=== PATIENT | male | born 1985 | race Two or more races ===

== ENCOUNTER 2017-11-25 21:20 | Emergency (ER) | payer MEDICAID, MEDICARE ==
[~2017-11-25] VITALS: Ht 180.3 cm; Wt 65.9 kg
[~2017-11-25 21:20] MED LIST: ALPR1TAB10 PO; CLON2TAB16 PO; TIZA4CAP PO; TRAZ150T62 PO; VORT10TA PO
[2017-11-25] MEDS ORDERED: LORazepam 1MG TABLET ONE (22:15)
[2017-11-25] MEDS ORDERED: LORazepam 1MG TABLET PO ONE (22:30)
[2017-11-25 22:42] LABS: BASOPHILS # (AUTO) 0.04 x10^3/uL (0-0.1); BASOPHILS % (AUTO) 1 % (0-1); EOSINOPHILS # (AUTO) 0.17 x10^3/uL (0-0.4); EOSINOPHILS % (AUTO) 3 % (1-7); LYMPHOCYTES % (AUTO) 39 % (22-44); MD NO; MEAN CORPUSCULAR HGB CONC 34.4 g/dL (33.2-36.2); MEAN CORPUSCULAR VOLUME 96.2 fL (81-97); MEAN PLATELET VOLUME 7.6 fL (7.4-10.4); MONOCYTES # (AUTO) 0.43 x10^3/uL (0.2-0.8); MONOCYTES % (AUTO) 7 % (2-9); NEUTROPHILS # (AUTO) 2.94 x10^3/uL (1.8-6.8); NEUTROPHILS % (AUTO) 50 % (42-75); PLATELET COUNT 154 x10^3/uL (130-400)
[2017-11-25 22:53] LABS: ALBUMIN 3.1 g/dL (3.4-5.0); ANION GAP 7 mmol/L (5-15); CALCIUM 7.7 mg/dL (8.5-10.1); CHLORIDE 112 mmol/L (98-107); CREATININE 0.81 mg/dL (0.7-1.3)
[2017-11-25 23:01] VITALS: BP 105/73
== END 2017-11-25 23:44 | disposition home or self-care (01) ==
LOC: ED 23:38
DX: R56.9 Unspecified convulsions (principal); Z90.49 Acquired absence of other specified parts of digestive tract
CPT/HCPCS: 36415; 80048; 80307; 82040; 85025; 99284; G0479

== ENCOUNTER 2018-04-07 22:21 | Inpatient (IN) | payer MEDICARE, MEDICAID ==
[~2018-04-07] VITALS: Ht 180.3 cm; Wt 58.4 kg
[2018-04-07] MEDS ORDERED: ONDANSETRON ODT 4 MG ONE (22:40)
[2018-04-07] MEDS ORDERED: MAALOX/HYOSCYAMINE/LIDOCAINE 45 ML BTL ONE (22:40)
[2018-04-07] MEDS ORDERED: MAALOX/HYOSCYAMINE/LIDOCAINE 45 ML BTL PO ONE (23:00)
[2018-04-07] MEDS ORDERED: ONDANSETRON ODT 4 MG PO ONE (23:00)
[2018-04-07 23:15] LABS: BASOPHILS # (AUTO) 0.05 x10^3/uL (0-0.1); BASOPHILS % (AUTO) 1 % (0-1); EOSINOPHILS # (AUTO) 0.03 x10^3/uL (0-0.4); EOSINOPHILS % (AUTO) 1 % (1-7); LYMPHOCYTES # (AUTO) 1.65 x10^3/uL (1-3.4); LYMPHOCYTES % (AUTO) 35 % (22-44); MD NO; MEAN CORPUSCULAR HEMOGLOBIN 32.2 pg (27.5-34.5); MEAN CORPUSCULAR HGB CONC 32.8 g/dL (33.2-36.2); MEAN CORPUSCULAR VOLUME 98.2 fL (81-97); MEAN PLATELET VOLUME 7.8 fL (7.4-10.4); MONOCYTES # (AUTO) 0.37 x10^3/uL (0.2-0.8); MONOCYTES % (AUTO) 8 % (2-9); NEUTROPHILS # (AUTO) 2.66 x10^3/uL (1.8-6.8); NEUTROPHILS % (AUTO) 56 % (42-75); PLATELET COUNT 170 x10^3/uL (130-400); RED BLOOD COUNT 3.94 x10^6/uL (4.38-5.82); RED CELL DISTRIBUTION WIDTH 20.4 % (9.4-14.8)
[2018-04-07 23:17] LABS: ALANINE AMINOTRANSFERASE 81 U/L (12-78); ALBUMIN 2.6 g/dL (3.4-5.0); ANION GAP 17 mmol/L (5-15); CALCIUM 7.9 mg/dL (8.5-10.1); CHLORIDE 109 mmol/L (98-107); CREATININE 1.08 mg/dL (0.7-1.3)
[2018-04-07 23:19] LABS: ALKALINE PHOSPHATASE 79 U/L (45-117); BILIRUBIN,TOTAL 1.2 mg/dL (0.2-1.0); TOTAL PROTEIN 5.2 g/dL (6.4-8.2)
[2018-04-08] MEDS ORDERED: PROCHLORPERAZINE 5 MG/ML, 2ML IVPush ONE
[2018-04-08] MEDS ORDERED: MORPHINE SULFATE 4 MG/ML, 1ML ONE (00:21)
[2018-04-08] MEDS ORDERED: PROCHLORPERAZINE 5 MG/ML, 2ML ONE (00:21)
[2018-04-08] MEDS ORDERED: SODIUM CHLORIDE 0.9% 1,000 ML IV ONE (01:54)
[2018-04-08] MEDS ORDERED: SODIUM CHLORIDE 0.9% 1,000ML IVBOLUS ONE ×2 (02:00)
[2018-04-08] MEDS ORDERED: MORPHINE SULFATE 4 MG/ML, 1ML IVPush PRN ×2 (02:00)
[2018-04-08 02:38] VITALS: BP 94/60
[2018-04-08] MEDS: MORPHINE SULFATE 4 MG/ML, 1ML IVPush PRN ×4 (05:18→20:44)
[2018-04-08] MEDS ORDERED: OMNIPAQUE 350 MG/ML, 100ML BOTTLE ONE (05:31)
[2018-04-08] MEDS ORDERED: morphine SULFATE 10 MG/ML, 1ML IVPush PRN (06:00)
[2018-04-08] MEDS ORDERED: ACETAMINOPHEN 500 MG TABLET PO PRN (06:00)
[2018-04-08] MEDS: POTASSIUM CHLORIDE 20 MEQ in LACTATED RINGERS 1,000 ML IV SCH ×3 (06:07→20:01)
[2018-04-08 07:09] VITALS: BP 107/70
[2018-04-08 07:12] LABS: % IRON SATURATION 85 % (20-55); IRON LEVEL 137 mcg/dL (65-175); TOTAL IRON BINDING CAPACITY 162 mcg/dL (250-450)
[2018-04-08] MEDS: ENOXAPARIN 40 MG/0.4 ML SQ SCH (07:34)
[2018-04-08] MEDS: VORTIOXETINE HYDROBROMIDE HOMEMEDPO SCH (07:34)
[2018-04-08] MEDS ORDERED: ALPR0.5T PO (08:34)
[2018-04-08] MEDS ORDERED: OMEP20CA14 PO (08:34)
[2018-04-08] MEDS ORDERED: HYDR100C2 PO (08:34)
[2018-04-08] MEDS ORDERED: TOPI100T39 PO (08:34)
[2018-04-08] MEDS ORDERED: TOPI25TA52 PO (08:34)
[2018-04-08] MEDS ORDERED: LEVE500V12 PO (08:34)
[2018-04-08] MEDS ORDERED: ZOLP10TA5 PO (08:34)
[2018-04-08] MEDS: POTASSIUM CHLORIDE 20 MEQ, MAGNESIUM SULFATE 1 GM, FOLIC ACID 1 MG, THIAMINE 100 MG, MV... IV SCH (11:28)
[2018-04-08 12:50] VITALS: BP 118/78
[2018-04-08 19:31] VITALS: BP_SYST 114; BP_SYST 123; BP_DIAS 73; BP_DIAS 84
[2018-04-08] MEDS: ONDANSETRON ODT 4 MG PO PRN (20:01)
[2018-04-08] MEDS: TRAZODONE 150MG TABLET PO SCH (20:43)
[2018-04-09] MEDS: ONDANSETRON ODT 4 MG PO PRN ×2 (00:26→21:03)
[2018-04-09] MEDS: MORPHINE SULFATE 4 MG/ML, 1ML IVPush PRN ×7 (00:26→22:50)
[2018-04-09 01:23] VITALS: BP 107/69
[2018-04-09] MEDS: POTASSIUM CHLORIDE 20 MEQ in LACTATED RINGERS 1,000 ML IV SCH ×2 (03:36→21:03)
[2018-04-09 05:49] LABS: BASOPHILS # (AUTO) 0.01 x10^3/uL (0-0.1); BASOPHILS % (AUTO) 0 % (0-1); EOSINOPHILS # (AUTO) 0.05 x10^3/uL (0-0.4); EOSINOPHILS % (AUTO) 2 % (1-7); LYMPHOCYTES # (AUTO) 1.01 x10^3/uL (1-3.4); LYMPHOCYTES % (AUTO) 29 % (22-44); MD NO; MEAN CORPUSCULAR HEMOGLOBIN 33.8 pg (27.5-34.5); MEAN CORPUSCULAR HGB CONC 34.3 g/dL (33.2-36.2); MEAN CORPUSCULAR VOLUME 98.5 fL (81-97); MEAN PLATELET VOLUME 8.1 fL (7.4-10.4); MONOCYTES % (AUTO) 9 % (2-9); NEUTROPHILS # (AUTO) 2.06 x10^3/uL (1.8-6.8); NEUTROPHILS % (AUTO) 60 % (42-75); PLATELET COUNT 103 x10^3/uL (130-400); RED BLOOD COUNT 3.62 x10^6/uL (4.38-5.82); RED CELL DISTRIBUTION WIDTH 19.2 % (9.4-14.8)
[2018-04-09 05:52] LABS: CHLORIDE 111 mmol/L (98-107)
[2018-04-09 05:59] LABS: ALANINE AMINOTRANSFERASE 96 U/L (12-78); ALBUMIN 2.2 g/dL (3.4-5.0); ALKALINE PHOSPHATASE 94 U/L (45-117); ANION GAP 6 mmol/L (5-15); BILIRUBIN,TOTAL 1.8 mg/dL (0.2-1.0); CALCIUM 7.1 mg/dL (8.5-10.1); CREATININE 0.62 mg/dL (0.7-1.3); TOTAL PROTEIN 4.8 g/dL (6.4-8.2)
[2018-04-09 07:23] VITALS: BP 94/66
[2018-04-09] MEDS: VORTIOXETINE HYDROBROMIDE HOMEMEDPO SCH (08:26)
[2018-04-09] MEDS: ENOXAPARIN 40 MG/0.4 ML SQ SCH (08:26)
[2018-04-09] MEDS: POTASSIUM CHLORIDE 20 MEQ, MAGNESIUM SULFATE 1 GM, FOLIC ACID 1 MG, THIAMINE 100 MG, MV... IV SCH (08:38)
[2018-04-09] MEDS ORDERED: SODIUM PHOSPHATE 20 MMOL in SODIUM CHLORIDE 0.9% 500 ML IV ONE (13:30)
[2018-04-09 14:00] VITALS: BP 99/68
[2018-04-09 17:13] VITALS: BP 102/64
[2018-04-09 18:55] VITALS: BP 99/66
[2018-04-09] MEDS: TRAZODONE 150MG TABLET PO SCH (21:03)
[2018-04-10 01:14] VITALS: BP 96/60
[2018-04-10] MEDS: POTASSIUM CHLORIDE 20 MEQ in LACTATED RINGERS 1,000 ML IV SCH (03:47)
[2018-04-10] MEDS: ONDANSETRON ODT 4 MG PO PRN ×2 (03:55→12:58)
[2018-04-10] MEDS: MORPHINE SULFATE 4 MG/ML, 1ML IVPush PRN ×3 (03:55→11:48)
[2018-04-10 05:44] LABS: CHLORIDE 112 mmol/L (98-107)
[2018-04-10 05:51] LABS: ALANINE AMINOTRANSFERASE 72 U/L (12-78); ALBUMIN 2.2 g/dL (3.4-5.0); ALKALINE PHOSPHATASE 93 U/L (45-117); ANION GAP 10 mmol/L (5-15); BILIRUBIN,TOTAL 1.4 mg/dL (0.2-1.0); CALCIUM 7.4 mg/dL (8.5-10.1); CREATININE 0.58 mg/dL (0.7-1.3); TOTAL PROTEIN 4.8 g/dL (6.4-8.2)
[2018-04-10] MEDS ORDERED: LEVETIRACETAM 500 MG TABLET PO SCH ×5 (06:00→09:00)
[2018-04-10 07:03] VITALS: BP 93/56
[2018-04-10] MEDS: VORTIOXETINE HYDROBROMIDE HOMEMEDPO SCH (07:38)
[2018-04-10] MEDS: ENOXAPARIN 40 MG/0.4 ML SQ SCH (07:53)
[2018-04-10] MEDS ORDERED: TOPIRAMATE 25 MG TABLET PO SCH (09:00)
[2018-04-10] MEDS ORDERED: OMEPRAZOLE 20 MG CAPSULE.DR PO SCH (09:00)
[2018-04-10] MEDS ORDERED: TOPIRAMATE 100 MG TABLET PO SCH (09:00)
[2018-04-10] MEDS: POTASSIUM CHLORIDE 20 MEQ, MAGNESIUM SULFATE 1 GM, FOLIC ACID 1 MG, THIAMINE 100 MG, MV... IV SCH (09:02)
[2018-04-10 09:08] LABS: FOLATE LEVEL > 20.0 ng/mL (3.1-17.5)
[2018-04-10 12:34] VITALS: BP 91/64
[2018-04-11] MEDS ORDERED: POTASSIUM CHLORIDE 20 MEQ in LACTATED RINGERS 1,000 ML IV SCH (05:31)
== END 2018-04-10 14:18 | disposition left against medical advice (07) | DRG 438 ==
LOC: ED 23:43 → EDIP 04-08 01:54 → 3NE 04-08 02:35
PROVIDERS: ADMIT Hospitalist; ATTEND Hospitalist
DX: K85.20 Alcohol induced acute pancreatitis without necrosis or infection (principal); E43 Unspecified severe protein-calorie malnutrition; E87.2 Acidosis; K76.0 Fatty (change of) liver, not elsewhere classified; K56.7 Ileus, unspecified; R16.0 Hepatomegaly, not elsewhere classified; E86.9 Volume depletion, unspecified; D63.8 Anemia in other chronic diseases classified elsewhere; F17.210 Nicotine dependence, cigarettes, uncomplicated; F41.1 Generalized anxiety disorder; G40.909 Epilepsy, unspecified, not intractable, without status epilepticus; K27.9 Peptic ulcer, site unspecified, unspecified as acute or chronic, without hemorrhage or perforation; K29.00 Acute gastritis without bleeding; K29.20 Alcoholic gastritis without bleeding; K52.9 Noninfective gastroenteritis and colitis, unspecified; Z87.11 Personal history of peptic ulcer disease; F32.9 Major depressive disorder, single episode, unspecified; F41.9 Anxiety disorder, unspecified; Z53.21 Procedure and treatment not carried out due to patient leaving prior to being seen by health care provider
CPT/HCPCS: 36415; 74021; 74177; 80053; 80307; 82607; 82746; 83540; 83550; 83690; 83735; 84100; 84478; 85025; 96374; 96375; J1650; J3411; J3475; J3480; Q0162; Q9967; J0780; J7030; J7040; J7120; J7121